=== PATIENT | female | born 1985 | race Caucasian/White ===

== ENCOUNTER 2018-03-26 10:45 | Emergency (ER) | payer BC, OTHER ==
[2018-03-26] MEDS: ACETAMINOPHEN 325 MG TAB PO (11:49)
[2018-03-26 12:24] LABS: UR MUCUS FEW /HPF (NONE SEEN); UR RBC 4 /HPF (0-5); UR SQUAMOUS EPITHELIAL CELL FEW /HPF (FEW); UR WBC 2 /HPF (0-5)
[2018-03-26 12:29] LABS: ADD UMIC YES; UR ASCORBIC ACID NEGATIVE (NEGATIVE); UR BILIRUBIN (Dip) NEGATIVE (NEGATIVE); UR BLOOD (Dip) 1+ mg/dL (NEGATIVE); UR CLARITY CLEAR (CLEAR); UR COLOR YELLOW (YELLOW); UR GLUCOSE (Dip) 1+ mg/dL (NEGATIVE); UR KETONES (Dip) TRACE mg/dL (NEGATIVE); UR LEUKOCYTE ESTERASE (Dip) NEGATIVE Leu/ul (NEGATIVE); UR NITRITE (Dip) NEGATIVE (NEGATIVE); UR TOTAL PROTEIN (Dip) NEGATIVE (NEGATIVE); UR UROBILINOGEN (Dip) NEGATIVE (NEGATIVE)
[2018-03-26] MEDS: METOCLOPRAMIDE 10 MG INJ IV (13:35)
[2018-03-26] MEDS: LACTATED RINGER'S 1,000 ML IV (13:35)
[2018-03-26 13:43] LABS: ADD MAN DIFF? NO
[2018-03-26 13:47] LABS: BASOPHILS % 0.1 % (0.0-2.0); EOSINOPHILS # 0.2 10^3/ul (0.0-0.5); EOSINOPHILS % 1.6 % (0.0-7.0); HEMATOCRIT 38.4 % (37.0-47.0); HEMOGLOBIN 12.3 g/dl (12.0-16.0); LYMPHOCYTES # 3.1 10^3/ul (0.8-2.9); LYMPHOCYTES % 27.5 % (15.0-51.0); MEAN CORPUSCULAR HEMOGLOBIN 23.7 pg (29.0-33.0); MEAN CORPUSCULAR VOLUME 73.8 fl (82.0-101.0); MEAN PLATELET VOLUME 9.1 fl (7.4-10.4); MONOCYTE # 0.8 10^3/ul (0.3-0.9); MONOCYTES % 6.7 % (0.0-11.0); NEUTROPHIL # 7.2 10^3/ul (1.6-7.5); NEUTROPHILS % 63.5 % (39.0-77.0); PLATELET COUNT 370 10^3/UL (140-415); RED CELL DISTRIBUTION WIDTH 19.5 % (11.5-14.5)
[2018-03-26 13:47] LABS: WHITE BLOOD COUNT 11.4 10^3/ul (4.8-10.8)
[2018-03-26 14:12] LABS: ALANINE AMINOTRANSFERASE 21 IU/L (13-69); ALBUMIN 3.8 g/dl (3.3-4.9); ALBUMIN/GLOBULIN RATIO 1.15; ALKALINE PHOSPHATASE 69 IU/L (42-121); ANION GAP 13 (8-16); ASPARTATE AMINO TRANSFERASE 20 IU/L (15-46); BILIRUBIN,INDIRECT 0.1 mg/dl (0-1.1); BILIRUBIN,TOTAL 0.1 mg/dl (0.2-1.3); BLOOD UREA NITROGEN 7 mg/dl (7-20); CALCIUM 9.8 mg/dl (8.4-10.2); CARBON DIOXIDE 25 mmol/L (21-31); CHLORIDE 106 mmol/L (97-110); CREATININE 0.45 mg/dl (0.44-1.00); GLUCOSE 81 mg/dl (70-220); LIPASE 46 U/L (23-300); SODIUM 140 mmol/L (135-144); TOTAL PROTEIN 7.1 g/dl (6.1-8.1)
== END 2018-03-26 14:51 | disposition home or self-care (01) ==
LOC: FTE 10:45
DX: O26.891 Other specified pregnancy related conditions, first trimester (principal); R10.31 Right lower quadrant pain; R10.32 Left lower quadrant pain; R10.2 Pelvic and perineal pain; Z3A.12 12 weeks gestation of pregnancy
CPT/HCPCS: 36415; 76801; 80053; 81001; 83690; 85025; 99285-25

== ENCOUNTER 2018-04-02 07:14 | Emergency (ER) | payer BC ==
[2018-04-02 08:13] LABS: ADD MAN DIFF? NO
[2018-04-02 08:22] LABS: ADD UMIC YES; BASOPHILS % 0.1 % (0.0-2.0); EOSINOPHILS # 0.2 10^3/ul (0.0-0.5); EOSINOPHILS % 2.5 % (0.0-7.0); HEMATOCRIT 36.1 % (37.0-47.0); HEMOGLOBIN 11.8 g/dl (12.0-16.0); LYMPHOCYTES # 1.6 10^3/ul (0.8-2.9); LYMPHOCYTES % 18.2 % (15.0-51.0); MEAN CORPUSCULAR HEMOGLOBIN 23.9 pg (29.0-33.0); MEAN CORPUSCULAR HGB CONC 32.7 g/dl (32.0-37.0); MEAN CORPUSCULAR VOLUME 73.1 fl (82.0-101.0); MEAN PLATELET VOLUME 9.5 fl (7.4-10.4); MONOCYTE # 0.4 10^3/ul (0.3-0.9); MONOCYTES % 5.1 % (0.0-11.0); NEUTROPHIL # 6.3 10^3/ul (1.6-7.5); NEUTROPHILS % 73.5 % (39.0-77.0); PLATELET COUNT 359 10^3/UL (140-415); RED BLOOD COUNT 4.94 10^6/ul (4.20-5.40); RED CELL DISTRIBUTION WIDTH 19.3 % (11.5-14.5); UR ASCORBIC ACID NEGATIVE (NEGATIVE); UR BILIRUBIN (Dip) NEGATIVE (NEGATIVE); UR BLOOD (Dip) 1+ mg/dL (NEGATIVE); UR CLARITY CLEAR (CLEAR); UR COLOR YELLOW (YELLOW); UR GLUCOSE (Dip) NEGATIVE (NEGATIVE); UR KETONES (Dip) NEGATIVE (NEGATIVE); UR LEUKOCYTE ESTERASE (Dip) NEGATIVE Leu/ul (NEGATIVE); UR MUCUS MANY /HPF (NONE SEEN); UR NITRITE (Dip) NEGATIVE (NEGATIVE); UR RBC 5 /HPF (0-5); UR SPECIFIC GRAVITY (Dip) 1.025 (1.003-1.030); UR TOTAL PROTEIN (Dip) NEGATIVE (NEGATIVE); UR UROBILINOGEN (Dip) NEGATIVE (NEGATIVE); UR WBC 3 /HPF (0-5)
[2018-04-02 08:22] LABS: WHITE BLOOD COUNT 8.6 10^3/ul (4.8-10.8)
== END 2018-04-02 09:52 | disposition home or self-care (01) ==
LOC: FTE 07:14
DX: O20.9 Hemorrhage in early pregnancy, unspecified (principal); O99.011 Anemia complicating pregnancy, first trimester; R10.2 Pelvic and perineal pain; Z3A.12 12 weeks gestation of pregnancy
CPT/HCPCS: 36415; 76801; 81001; 84702; 85025; 86900; 86901; 99284-25

== ENCOUNTER 2018-05-01 12:08 | Emergency (ER) | payer BC ==
[2018-05-01] MEDS: SOD CHLORIDE 0.9% 1,000 ML IV (12:54)
[2018-05-01] MEDS: ACETAMINOPHEN 500 MG TAB PO (12:57)
[2018-05-01] MEDS: DIPHENHYDRAMINE 50 MG INJ IV (14:40)
== END 2018-05-01 16:44 | disposition home or self-care (01) ==
LOC: E/R 16:44
DX: O99.89 Other specified diseases and conditions complicating pregnancy, childbirth and the puerperium (principal); R51 Headache; Z3A.16 16 weeks gestation of pregnancy; Z87.59 Personal history of other complications of pregnancy, childbirth and the puerperium
CPT/HCPCS: 70544; 70551; 96374; 99285-25

== ENCOUNTER 2018-06-21 15:49 | Outpatient (CLI) | payer BC ==
[2018-06-21 17:44] LABS: ADD UMIC NO; UR ASCORBIC ACID NEGATIVE (NEGATIVE); UR BILIRUBIN (Dip) NEGATIVE (NEGATIVE); UR BLOOD (Dip) NEGATIVE (NEGATIVE); UR CLARITY CLEAR (CLEAR); UR COLOR YELLOW (YELLOW); UR GLUCOSE (Dip) NEGATIVE (NEGATIVE); UR KETONES (Dip) 1+ mg/dL (NEGATIVE); UR LEUKOCYTE ESTERASE (Dip) NEGATIVE Leu/ul (NEGATIVE); UR NITRITE (Dip) NEGATIVE (NEGATIVE); UR SPECIFIC GRAVITY (Dip) 1.021 (1.003-1.030); UR TOTAL PROTEIN (Dip) NEGATIVE (NEGATIVE); UR UROBILINOGEN (Dip) NEGATIVE (NEGATIVE)
[2018-06-21] MEDS: ACETAMINOPHEN 325 MG TAB PO (18:00)
[2018-06-21 18:37] LABS: RUPTURE FETAL MEMBRANES NEGATIVE (NEGATIVE)
== END 2018-06-21 19:10 | disposition home or self-care (01) ==
LOC: OBT 15:49 → L-D 15:50 → OBT 19:10
DX: O30.002 Twin pregnancy, unspecified number of placenta and unspecified number of amniotic sacs, second trimester (principal); O60.02 Preterm labor without delivery, second trimester; O09.522 Supervision of elderly multigravida, second trimester; Z3A.24 24 weeks gestation of pregnancy
CPT/HCPCS: 76815; 81003; 84112

== ENCOUNTER 2018-07-04 07:14 | Inpatient (IN) | payer BC ==
[2018-07-04] MEDS: LACTATED RINGER'S 500 ML IV (07:58)
[2018-07-04 08:47] LABS: ADD MAN DIFF? NO
[2018-07-04 08:49] LABS: BASOPHILS % 0.2 % (0.0-2.0); EOSINOPHILS # 0.1 10^3/ul (0.0-0.5); HEMATOCRIT 34.2 % (37.0-47.0); LYMPHOCYTES # 1.2 10^3/ul (0.8-2.9); LYMPHOCYTES % 10.3 % (15.0-51.0); MEAN CORPUSCULAR HEMOGLOBIN 24.9 pg (29.0-33.0); MEAN CORPUSCULAR HGB CONC 32.2 g/dl (32.0-37.0); MEAN CORPUSCULAR VOLUME 77.4 fl (82.0-101.0); MONOCYTE # 0.6 10^3/ul (0.3-0.9); MONOCYTES % 5.3 % (0.0-11.0); NEUTROPHIL # 9.7 10^3/ul (1.6-7.5); NEUTROPHILS % 81.8 % (39.0-77.0); PLATELET COUNT 262 10^3/UL (140-415); RED BLOOD COUNT 4.42 10^6/ul (4.20-5.40); RED CELL DISTRIBUTION WIDTH 15.9 % (11.5-14.5)
[2018-07-04 08:49] LABS: WHITE BLOOD COUNT 11.8 10^3/ul (4.8-10.8)
[2018-07-04 08:54] LABS: ADD UMIC NO; UR ASCORBIC ACID NEGATIVE (NEGATIVE); UR BILIRUBIN (Dip) NEGATIVE (NEGATIVE); UR BLOOD (Dip) NEGATIVE (NEGATIVE); UR CLARITY CLEAR (CLEAR); UR COLOR YELLOW (YELLOW); UR GLUCOSE (Dip) NEGATIVE (NEGATIVE); UR KETONES (Dip) 1+ mg/dL (NEGATIVE); UR LEUKOCYTE ESTERASE (Dip) NEGATIVE Leu/ul (NEGATIVE); UR NITRITE (Dip) NEGATIVE (NEGATIVE); UR SPECIFIC GRAVITY (Dip) 1.018 (1.003-1.030); UR TOTAL PROTEIN (Dip) NEGATIVE (NEGATIVE); UR UROBILINOGEN (Dip) NEGATIVE (NEGATIVE)
[2018-07-04 09:21] LABS: ALANINE AMINOTRANSFERASE 14 IU/L (13-69); ALBUMIN 3.3 g/dl (3.3-4.9); ALBUMIN/GLOBULIN RATIO 1.06; ALKALINE PHOSPHATASE 57 IU/L (42-121); AMYLASE 94 U/L (11-123); ANION GAP 15 (8-16); ASPARTATE AMINO TRANSFERASE 19 IU/L (15-46); BILIRUBIN,INDIRECT 0.2 mg/dl (0-1.1); BILIRUBIN,TOTAL 0.2 mg/dl (0.2-1.3); BLOOD UREA NITROGEN 6 mg/dl (7-20); CALCIUM 8.6 mg/dl (8.4-10.2); CARBON DIOXIDE 20 mmol/L (21-31); CHLORIDE 107 mmol/L (97-110); CREATININE 0.38 mg/dl (0.44-1.00); GLUCOSE 105 mg/dl (70-220); LIPASE 56 U/L (23-300); POTASSIUM 3.8 mmol/L (3.5-5.1); SODIUM 138 mmol/L (135-144); TOTAL PROTEIN 6.4 g/dl (6.1-8.1); URIC ACID 3.8 mg/dl (3.1-7.9)
[2018-07-04] MEDS: ACETAMINOPHEN 325 MG TAB PO ×3 (12:21→21:40)
[2018-07-04] MEDS: LACTATED RINGER'S 1,000 ML IV ×2 (13:08→22:02)
[2018-07-04] MEDS: CITRIC ACID/SODIUM CITRATE 15 ML CUP PO (15:34)
[2018-07-04] MEDS: DIPHENHYDRAMINE 25 MG CAP PO (17:15)
[2018-07-04] MEDS: KETOROLAC 30 MG INJ IV (20:06)
[2018-07-05] MEDS: BUPIVACAINE 0.5%/EPI (SDV) 30 ML INJ INJ
[2018-07-05] MEDS: KETOROLAC 30 MG INJ IV (02:00)
[2018-07-05] MEDS: ACETAMINOPHEN 1000MG/100ML IV 100 ML IVPB (02:32)
[2018-07-05] MEDS: LACTATED RINGER'S 1,000 ML IV ×2 (06:33→17:17)
[2018-07-05 06:52] LABS: ADD MAN DIFF? NO
[2018-07-05] MEDS ORDERED: CEFAZOLIN 1 GM INJ (07:00)
[2018-07-05 07:04] LABS: WHITE BLOOD COUNT 11.6 10^3/ul (4.8-10.8)
[2018-07-05 07:04] LABS: BASOPHILS % 0.3 % (0.0-2.0); EOSINOPHILS # 0.1 10^3/ul (0.0-0.5); EOSINOPHILS % 0.7 % (0.0-7.0); HEMATOCRIT 31.3 % (37.0-47.0); HEMOGLOBIN 10.1 g/dl (12.0-16.0); LYMPHOCYTES # 1.3 10^3/ul (0.8-2.9); LYMPHOCYTES % 10.8 % (15.0-51.0); MEAN CORPUSCULAR HEMOGLOBIN 24.8 pg (29.0-33.0); MEAN CORPUSCULAR HGB CONC 32.3 g/dl (32.0-37.0); MEAN CORPUSCULAR VOLUME 76.7 fl (82.0-101.0); MEAN PLATELET VOLUME 9.8 fl (7.4-10.4); MONOCYTE # 0.7 10^3/ul (0.3-0.9); MONOCYTES % 6.3 % (0.0-11.0); NEUTROPHIL # 9.4 10^3/ul (1.6-7.5); NEUTROPHILS % 80.6 % (39.0-77.0); PLATELET COUNT 232 10^3/UL (140-415); RED BLOOD COUNT 4.08 10^6/ul (4.20-5.40); RED CELL DISTRIBUTION WIDTH 15.9 % (11.5-14.5)
[2018-07-05] MEDS: BUTORPHANOL 2 MG INJ IV (07:37)
[2018-07-05] MEDS: PRENATAL VITAMIN PO (09:00)
[2018-07-05] MEDS ORDERED: KETOROLAC 30 MG INJ IV (09:30)
[2018-07-05] MEDS ORDERED: ONDANSETRON 4 MG INJ IV ×2 (09:30→11:30)
[2018-07-05] MEDS ORDERED: MEPERIDINE 25 MG INJ IV (09:30)
[2018-07-05] MEDS ORDERED: LABETALOL HCL 20MG INJ IV (09:30)
[2018-07-05] MEDS ORDERED: ALBUTEROL 0.083% (NEB) 2.5 MG/3 ML AMP HHN (09:30)
[2018-07-05] MEDS ORDERED: MIDAZOLAM 1 MG/ML 2 ML INJ IV (09:30)
[2018-07-05] MEDS ORDERED: HYDROmorphONE 1 MG/5 ML IV SYRINGE IV ×3 (09:30)
[2018-07-05] MEDS ORDERED: EPHEDrine SULFATE 50 MG/5 ML SYG IV (09:30)
[2018-07-05] MEDS ORDERED: FENTAnyl 50 MCG/ML VIAL IV ×3 (09:30)
[2018-07-05] MEDS ORDERED: DIPHENHYDRAMINE 50 MG INJ IV (09:30)
[2018-07-05] MEDS ORDERED: METOCLOPRAMIDE 10 MG INJ IV (09:30)
[2018-07-05] MEDS ORDERED: hydrALAzine 20 MG INJ IV (09:30)
[2018-07-05] MEDS ORDERED: PROPOFOL 100 ML (09:39)
[2018-07-05] MEDS ORDERED: ROCURONIUM 50 MG INJ (09:43)
[2018-07-05] MEDS ORDERED: BUPIVACAINE 0.75%/DEXT (SPINAL) 2 ML INJ (09:48)
[2018-07-05] MEDS ORDERED: morphine SULFATE/PF (10 MG/10 ML) INJ (09:48)
[2018-07-05] MEDS ORDERED: MIDAZOLAM 1 MG/ML 2 ML INJ ×2 (10:02→10:18)
[2018-07-05] MEDS ORDERED: PHENYLephrine (100 MCG/ML) 5ML SYG ×2 (10:12→10:16)
[2018-07-05] MEDS ORDERED: DEXAMETHASONE 4 MG/ML 1 ML INJ (10:17)
[2018-07-05] MEDS ORDERED: ONDANSETRON 4 MG INJ (10:17)
[2018-07-05] MEDS ORDERED: BUPIVACAINE 0.5%/EPI (SDV) 30 ML INJ (10:27)
[2018-07-05] MEDS ORDERED: morphine 2 MG INJ IV (11:30)
[2018-07-05] MEDS ORDERED: OXYCODONE/ACETAMINOPHEN (5/325) TAB PO (11:30)
[2018-07-05] MEDS: CEFAZOLIN 1 GM/50 ML (PMX) 50 ML IVPB ×2 (12:51→18:24)
[2018-07-05] MEDS: LACTATED RINGER'S 500 ML IV (12:57)
[2018-07-05 16:38] LABS: ADD UMIC NO; UR ASCORBIC ACID NEGATIVE (NEGATIVE); UR BILIRUBIN (Dip) NEGATIVE (NEGATIVE); UR BLOOD (Dip) NEGATIVE (NEGATIVE); UR CLARITY CLEAR (CLEAR); UR COLOR YELLOW (YELLOW); UR GLUCOSE (Dip) NEGATIVE (NEGATIVE); UR KETONES (Dip) 2+ mg/dL (NEGATIVE); UR LEUKOCYTE ESTERASE (Dip) NEGATIVE Leu/ul (NEGATIVE); UR NITRITE (Dip) NEGATIVE (NEGATIVE); UR SPECIFIC GRAVITY (Dip) 1.015 (1.003-1.030); UR TOTAL PROTEIN (Dip) NEGATIVE (NEGATIVE); UR UROBILINOGEN (Dip) 1+ mg/dL (NEGATIVE)
[2018-07-05 17:02] LABS: AMPHETAMINE/METHAMPHETAMINE Negative (NEGATIVE); BARBITURATES Negative (NEGATIVE); CANNABINOIDS Negative (NEGATIVE); COCAINE Negative (NEGATIVE); OPIATES Negative (NEGATIVE)
[2018-07-05] MEDS ORDERED: MAGNESIUM SULFATE 4 GM/100 ML 100 ML (17:03)
[2018-07-05 17:08] LABS: BENZODIAZEPINES Positive (NEGATIVE)
[2018-07-05] MEDS: MAGNESIUM SULFATE 4 GM/100 ML 100 ML IVPB (17:54)
[2018-07-05] MEDS: MAGNESIUM SULFATE 20 GM/500 ML 500 ML IV (18:38)
[2018-07-05 19:43] LABS: COLLECTION PERIOD 24 hrs
[2018-07-05 20:28] LABS: VOLUME 2000 mls
[2018-07-06] MEDS: CEFAZOLIN 1 GM/50 ML (PMX) 50 ML IVPB ×4 (00:41→17:53)
[2018-07-06] MEDS: LACTATED RINGER'S 1,000 ML IV ×4 (00:42→19:41)
[2018-07-06 02:00] LABS: MAGNESIUM 4.2 mg/dl (1.7-2.5)
[2018-07-06] MEDS: ACETAMINOPHEN 325 MG TAB PO ×3 (02:04→15:35)
[2018-07-06] MEDS: MAGNESIUM SULFATE 20 GM/500 ML 500 ML IV ×2 (04:37→14:46)
[2018-07-06 07:36] LABS: ADD MAN DIFF? NO
[2018-07-06 07:42] LABS: BASOPHILS % 0.2 % (0.0-2.0); EOSINOPHILS # 0.1 10^3/ul (0.0-0.5); EOSINOPHILS % 1.1 % (0.0-7.0); HEMOGLOBIN 9.2 g/dl (12.0-16.0); LYMPHOCYTES # 1.4 10^3/ul (0.8-2.9); LYMPHOCYTES % 12.3 % (15.0-51.0); MEAN CORPUSCULAR HEMOGLOBIN 24.7 pg (29.0-33.0); MEAN CORPUSCULAR HGB CONC 31.7 g/dl (32.0-37.0); MEAN PLATELET VOLUME 9.9 fl (7.4-10.4); MONOCYTE # 0.7 10^3/ul (0.3-0.9); NEUTROPHIL # 9.3 10^3/ul (1.6-7.5); NEUTROPHILS % 79.2 % (39.0-77.0); PLATELET COUNT 229 10^3/UL (140-415); RED BLOOD COUNT 3.72 10^6/ul (4.20-5.40); RED CELL DISTRIBUTION WIDTH 16.4 % (11.5-14.5)
[2018-07-06 07:42] LABS: WHITE BLOOD COUNT 11.7 10^3/ul (4.8-10.8)
[2018-07-06 08:04] LABS: MAGNESIUM 4.7 mg/dl (1.7-2.5)
[2018-07-06] MEDS: PRENATAL VITAMIN PO (09:32)
[2018-07-06] MEDS: BETAMET NA PHOS/AC(6 MG/ML) 5ML INJ IM (12:09)
[2018-07-06 12:50] LABS: MAGNESIUM 4.6 mg/dl (1.7-2.5)
[2018-07-06] MEDS: FAMOTIDINE 20 MG INJ IV ×2 (16:19→22:09)
[2018-07-06 18:11] LABS: MAGNESIUM 4.7 mg/dl (1.7-2.5)
[2018-07-07] MEDS: CEFAZOLIN 1 GM/50 ML (PMX) 50 ML IVPB ×4 (00:16→17:51)
[2018-07-07 01:14] LABS: MAGNESIUM 4.7 mg/dl (1.7-2.5)
[2018-07-07] MEDS: MAGNESIUM SULFATE 20 GM/500 ML 500 ML IV ×2 (01:33→12:57)
[2018-07-07] MEDS: ACETAMINOPHEN 325 MG TAB PO (04:49)
[2018-07-07] MEDS: FAMOTIDINE 20 MG INJ IV ×3 (06:03→22:44)
[2018-07-07 07:36] LABS: MAGNESIUM 4.9 mg/dl (1.7-2.5)
[2018-07-07] MEDS: LACTATED RINGER'S 1,000 ML IV ×2 (08:35→21:15)
[2018-07-07] MEDS: PRENATAL VITAMIN PO (09:30)
[2018-07-07] MEDS: BETAMET NA PHOS/AC(6 MG/ML) 5ML INJ IM (12:00)
[2018-07-07] MEDS: OXYCODONE/ACETAMINOPHEN (5/325) TAB PO ×2 (12:52→18:39)
[2018-07-07 13:02] LABS: MAGNESIUM 4.2 mg/dl (1.7-2.5)
[2018-07-08] MEDS: OXYCODONE/ACETAMINOPHEN (5/325) TAB PO (05:04)
[2018-07-08] MEDS: FAMOTIDINE 20 MG INJ IV (06:06)
[2018-07-08] MEDS: PRENATAL VITAMIN PO (08:57)
== END 2018-07-08 10:20 | disposition home or self-care (01) | DRG 781 ==
LOC: OBT 07:14 → PP1 07-07 18:16 → L-D 07:14 → OBT 10:56 → L-D 10:56
PROC: 0DTJ0ZZ Resection of Appendix, Open Approach (ICD-10-PCS; principal; 2018-07-05 09:00)
DX: O99.612 Diseases of the digestive system complicating pregnancy, second trimester (principal); K35.3 Acute appendicitis with localized peritonitis; O30.002 Twin pregnancy, unspecified number of placenta and unspecified number of amniotic sacs, second trimester; O09.522 Supervision of elderly multigravida, second trimester; Z3A.25 25 weeks gestation of pregnancy
CPT/HCPCS: 36415; 74181; 76700; 76705; 76815; 76817; 76818; 80053; 80307; 81003; 82150; 82731; 83690; 83735; 84156; 84560; 85025; 87070; 87075; 87086; 88304; 96360; 96361

== ENCOUNTER 2018-07-09 00:15 | Outpatient (CLI) | payer BC ==
[2018-07-09 01:53] LABS: RUPTURE FETAL MEMBRANES NEGATIVE (NEGATIVE)
[2018-07-09] MEDS: OXYCODONE/ACETAMINOPHEN (5/325) TAB PO (03:27)
== END 2018-07-09 03:40 | disposition home or self-care (01) ==
LOC: OBT 00:15 → L-D 00:15 → OBT 03:40
DX: O26.892 Other specified pregnancy related conditions, second trimester (principal); O09.522 Supervision of elderly multigravida, second trimester; Z3A.25 25 weeks gestation of pregnancy
CPT/HCPCS: 84112

== ENCOUNTER 2018-09-07 08:24 | Outpatient (CLI) | payer BC ==
[2018-09-07 10:18] LABS: ADD UMIC YES; UR ASCORBIC ACID NEGATIVE (NEGATIVE); UR BACTERIA FEW /HPF (NONE SEEN); UR BILIRUBIN (Dip) 1+ mg/dL (NEGATIVE); UR BLOOD (Dip) NEGATIVE (NEGATIVE); UR CLARITY SLIGHTLY CLOUDY (CLEAR); UR COLOR AMBER (YELLOW); UR GLUCOSE (Dip) NEGATIVE (NEGATIVE); UR KETONES (Dip) TRACE mg/dL (NEGATIVE); UR LEUKOCYTE ESTERASE (Dip) NEGATIVE Leu/ul (NEGATIVE); UR MUCUS MANY /HPF (NONE SEEN); UR NITRITE (Dip) NEGATIVE (NEGATIVE); UR RBC 1 /HPF (0-5); UR SPECIFIC GRAVITY (Dip) 1.034 (1.003-1.030); UR SQUAMOUS EPITHELIAL CELL FEW /HPF (FEW); UR TOTAL PROTEIN (Dip) 2+ mg/dl (NEGATIVE); UR UROBILINOGEN (Dip) 1+ mg/dL (NEGATIVE); UR WBC 4 /HPF (0-5)
[2018-09-07 10:36] LABS: AMPHETAMINE/METHAMPHETAMINE Negative (NEGATIVE); BARBITURATES Negative (NEGATIVE); BENZODIAZEPINES Negative (NEGATIVE); CANNABINOIDS Negative (NEGATIVE); COCAINE Negative (NEGATIVE); OPIATES Negative (NEGATIVE)
== END 2018-09-07 12:59 | disposition home or self-care (01) ==
LOC: OBT 08:24 → L-D 08:24 → OBT 12:59
DX: O26.892 Other specified pregnancy related conditions, second trimester (principal); G43.909 Migraine, unspecified, not intractable, without status migrainosus; O30.003 Twin pregnancy, unspecified number of placenta and unspecified number of amniotic sacs, third trimester; O09.523 Supervision of elderly multigravida, third trimester; Z3A.34 34 weeks gestation of pregnancy
CPT/HCPCS: 76815; 76816; 76817; 80307; 81001; 87086